=== PATIENT | male | born 1960 | race Caucasian/White ===

== ENCOUNTER → 2019-04-17 | Outpatient (CLI) | payer OTHER | LOC: MRI 07:34 | DX: S83.511A Sprain of anterior cruciate ligament of right knee, initial encounter (principal); M25.461 Effusion, right knee; M22.41 Chondromalacia patellae, right knee; M71.21 Synovial cyst of popliteal space [Baker], right knee; X58.XXXA Exposure to other specified factors, initial encounter; Y93.89 Activity, other specified; Y92.89 Other specified places as the place of occurrence of the external cause; Y99.8 Other external cause status ==